=== PATIENT | female | born 1950 ===

== ENCOUNTER 2020-09-05 19:12 | Emergency (ER) | payer OTHER ==
[~2020-09-05] VITALS: Ht 165.1 cm; Wt 64.9 kg
== END 2020-09-05 21:38 | disposition home or self-care (01) ==
LOC: ER 19:12
DX: R09.81 Nasal congestion (principal); R50.9 Fever, unspecified; R05 Cough; Z20.828 Contact with and (suspected) exposure to other viral communicable diseases